=== PATIENT | female | born 1960 | race Caucasian/White ===

== ENCOUNTER → 2018-02-06 | Outpatient (CLI) | payer BC | LOC: COL.RAD 12:00 | DX: K76.0 Fatty (change of) liver, not elsewhere classified (principal); R12 Heartburn; A04.8 Other specified bacterial intestinal infections ==

== ENCOUNTER → 2018-03-31 | Outpatient (CLI) | payer BC | LOC: COL.RAD 07:30 | DX: D18.03 Hemangioma of intra-abdominal structures (principal); A04.8 Other specified bacterial intestinal infections; K21.0 Gastro-esophageal reflux disease with esophagitis; R12 Heartburn; M47.816 Spondylosis without myelopathy or radiculopathy, lumbar region | CPT/HCPCS: Q9967 ==

== ENCOUNTER 2024-03-05 14:26 | Emergency (ER) | payer OTHER ==
[~2024-03-05] VITALS: Ht 157.5 cm; Wt 71.8 kg
[2024-03-05 14:44] VITALS: TEMP 98.2
[2024-03-05] MEDS ORDERED: NS 1,000 ML IV ONE (17:15)
[2024-03-05] MEDS ORDERED: Morphine 4 MG/ML VIAL IV ONE (17:15)
[2024-03-05 17:18] LABS: BASO % 0.2 % (0.0-2.0); GRAN # 7.9 K/mm3 (1.4-6.5); GRAN % 81.1 % (42.2-75.2); HEMATOCRIT 44.2 % (37.0-47.0); HEMOGLOBIN 15.1 g/dl (12.5-16.0); LYMPH # 1.3 K/mm3 (1.2-3.4); LYMPH % 13.8 % (20.0-51.0); MEAN CELL VOLUME 91 fl (80.0-100.0); MEAN CORPUSCULAR HEMOGLOBIN 31 pg (27-31); MEAN CORPUSCULAR HGB CONC 34 g/dl (33.0-37.0); MEAN PLATELET VOLUME 11.7 fl (7.4-10.4); MONO # 0.4 K/mm3 (0.1-0.6); MONO % 4.5 % (1.7-9.3); PLATELET COUNT 184 K/mm3 (130-400); RED BLOOD COUNT 4.86 M/mm3 (4.10-5.30); REDCELL DISTRIBUTION WIDTH-CV 11.8 % (11.5-14.5)
[2024-03-05 17:33] LABS: ALBUMIN 4.1 g/dL (3.4-4.8); BILIRUBIN,TOTAL 0.3 mg/dL (0.2-1.2); CALCIUM 9.9 mg/dL (8.4-10.2); CREATININE, serum 0.77 mg/dL (0.57-1.11); POTASSIUM 4.2 mEq/L (3.5-4.5); TOTAL PROTEIN 7.7 g/dl (6.2-8.1)
[2024-03-05 17:37] LABS: PH 6.5 (5.0-8.5); URINE APPEARANCE CLEAR (CLEAR/HAZY); URINE BLOOD NEGATIVE (NEGATIVE); URINE COLOR YELLOW (YELLOW); URINE GLUCOSE 1+ (NEGATIVE); URINE KETONE NEGATIVE (NEGATIVE); URINE NITRATE NEGATIVE (NEGATIVE); URINE PROTEIN(semi-quant) NEGATIVE (NEGATIVE)
[2024-03-05 17:54] LABS: COLLECTION METHOD CLEAN CATCH
[2024-03-05] MEDS ORDERED: Iohexol 300 - 100 ML VIAL IV ONE (18:26)
[2024-03-05] MEDS ORDERED: NS 100 ML IV SCH (18:27)
[2024-03-05] MEDS ORDERED: Ketorolac 30 MG/ML VIAL IV ONE (19:30)
[2024-03-05] MEDS ORDERED: PERCOCET 325 MG1 TA2 PO (19:33)
[2024-03-05 19:54] VITALS: BP 145/88; PULSE 77
== END 2024-03-05 19:54 | disposition home or self-care (01) ==
LOC: COL.ER 14:26
PROVIDERS: Physician Assistant
DX: M54.16 Radiculopathy, lumbar region (principal)
CPT/HCPCS: J1885; J2270; J2360; J7030; Q9967

== ENCOUNTER → 2024-03-26 | Outpatient (CLI) | payer OTHER ==
[~2024-03-26] MED LIST: PERCOCET 325 MG1 TA2 PO
== END ==
LOC: COL.RAD 06:55
DX: M51.36 Other intervertebral disc degeneration, lumbar region (principal); M47.816 Spondylosis without myelopathy or radiculopathy, lumbar region